=== PATIENT | female | born 1995 ===

== ENCOUNTER 2023-03-30 09:24 | Outpatient (CLI) | payer OTHER | END 2023-03-30 11:21 | disposition home or self-care (01) | LOC: PRENATAL 09:24 | PROVIDERS: ATTEND Obstetrics & Gynecology Maternal & Fetal Medicine | DX: O35.9XX0 Maternal care for (suspected) fetal abnormality and damage, unspecified, not applicable or unspecified (principal); O35.3XX0 Maternal care for (suspected) damage to fetus from viral disease in mother, not applicable or unspecified; Z3A.20 20 weeks gestation of pregnancy ==

== ENCOUNTER 2023-05-28 09:53 | Outpatient (CLI) | payer OTHER | END 2023-05-28 11:25 | disposition home or self-care (01) | LOC: PRENATAL 09:53 | PROVIDERS: ATTEND Obstetrics & Gynecology Maternal & Fetal Medicine | DX: O26.849 Uterine size-date discrepancy, unspecified trimester (principal); O35.3XX0 Maternal care for (suspected) damage to fetus from viral disease in mother, not applicable or unspecified; Z3A.28 28 weeks gestation of pregnancy ==

== ENCOUNTER 2023-07-06 18:50 | Emergency (ER) | payer OTHER ==
[~2023-07-06] VITALS: Ht 149.9 cm; Wt 79.4 kg
[2023-07-06] MEDS ORDERED: PRENA1 TRUE CO1 EACH PO (19:08)
== END 2023-07-06 20:46 | disposition home or self-care (01) ==
LOC: ER 18:50
DX: O99.513 Diseases of the respiratory system complicating pregnancy, third trimester (principal); J06.9 Acute upper respiratory infection, unspecified; Z3A.34 34 weeks gestation of pregnancy; Z91.013 Allergy to seafood

== ENCOUNTER 2023-07-24 17:01 | Inpatient (IN) | payer OTHER ==
[~2023-07-24] VITALS: Ht 149.9 cm; Wt 79.4 kg
[~2023-07-24 17:01] MED LIST: PRENA1 TRUE CO1 EACH PO
[2023-07-24] MEDS ORDERED: IRON18 MG (21:25)
== END 2023-07-31 10:05 | disposition home or self-care (01) | DRG 788 ==
LOC: OBS/DEL 17:01 → LDR 07-25 08:25 → OB/GYN 07-28 11:42
PROVIDERS: ADMIT Obstetrics & Gynecology; ATTEND Obstetrics & Gynecology
PROC: 4A1HXCZ Monitoring of Products of Conception, Cardiac Rate, External Approach (ICD-10-PCS; 2023-07-25)
PROC: BY4FZZZ Ultrasonography of Third Trimester, Single Fetus (ICD-10-PCS; 2023-07-25)
PROC: 3E033VJ Introduction of Other Hormone into Peripheral Vein, Percutaneous Approach (ICD-10-PCS; 2023-07-27)
PROC: 3E0P7VZ Introduction of Hormone into Female Reproductive, Via Natural or Artificial Opening (ICD-10-PCS; 2023-07-27)
PROC: 10D00Z1 Extraction of Products of Conception, Low, Open Approach (ICD-10-PCS; principal; 2023-07-28 10:00)
DX: O61.0 Failed medical induction of labor (principal); O36.8130 Decreased fetal movements, third trimester, not applicable or unspecified; O26.843 Uterine size-date discrepancy, third trimester; O11.4 Pre-existing hypertension with pre-eclampsia, complicating childbirth; O13.4 Gestational [pregnancy-induced] hypertension without significant proteinuria, complicating childbirth; Z3A.36 36 weeks gestation of pregnancy; Z37.0 Single live birth; Z20.822 Contact with and (suspected) exposure to COVID-19